=== PATIENT | male | born 1950 | race Caucasian/White ===

== ENCOUNTER 2019-04-30 11:51 | Inpatient (IN) ==
[2019-04-30 13:24] LABS: Alanine Aminotransferase 15 Units/L (7-52); Albumin 3.6 g/dL (3.5-5.7); Alkaline Phosphatase 76 Units/L (34-104); Aspartate Amino Transferase 17 Units/L (13-39); BUN/Creatinine Ratio 16 (6-26); Bilirubin,Total 0.9 mg/dL (0.3-1.0); Blood Urea Nitrogen 14 mg/dL (8-23); Carbon Dioxide 30 mEq/L (23-29); Chloride 103 mEq/L (98-107); Globulin 3.7 g/dL (2.4-3.5); Glucose 103 mg/dL (70-105); Osmolality,Calculated 291 (280-300); Potassium 3.8 mEq/L (3.5-5.1); Sodium 140 mEq/L (136-145); Total Protein 7.3 g/dL (6.4-8.9); Troponin I < 0.03 ng/mL (< 0.04); eGFR For African Americans > 60 (> 60); eGFR For Non-African Americans > 60 (> 60)
[2019-04-30] MEDS ORDERED: Furosemide 40 MG/4 ML VIAL IVP ONE (13:57)
[2019-04-30 14:16] LABS: Basophils % 0.5 %; Eosinophils # 0.3 K/mcL (0.0-0.6); Eosinophils % 5.7 %; Hematocrit 40.7 % (37.5-50.1); Hemoglobin 13.5 g/dL (12.9-16.9); Immature Granulocytes % 0.2 % (0-4); Lymphocytes # 1.6 K/mcL (0.6-4.6); Lymphocytes % 28.4 %; Mean Corpuscular HGB Conc 33.2 g/dL (31.6-35.5); Mean Corpuscular Hemoglobin 33.9 pg (28.0-33.3); Mean Corpuscular Volume 102.3 fL (83.0-100.0); Mean Platelet Volume 9.9 fL (9.4-12.4); Monocytes # 0.5 K/mcL (0.0-1.3); Monocytes % 8.3 %; Neutrophils # 3.2 K/mcL (1.6-8.9); Platelet Count 184 K/mcL (140-400); Red Blood Count 3.98 M/mcL (4.19-5.50); Red Cell Distribution Width 12.7 % (11.5-14.5); Segmented Neutrophils % 56.9 %; White Blood Count 5.6 K/mcL (4.3-11.1)
[2019-04-30 14:56] LABS: Bilirubin,Urine Negative (Negative); Blood,Urine Negative (Negative); Clarity,Urine Clear (Clear); Color,Urine Yellow (Yellow); Glucose,Urine (UA) Normal (Normal); Ketones,Urine Negative (Negative); Leukocyte Esterase,Urine Negative (Negative); Nitrite,Urine Negative (Negative); Protein,Urine Negative (Neg-Trace); Specific Gravity,Urine 1.013 (1.010-1.025); Urobilinogen,Urine Normal (Normal)
[2019-04-30] MEDS ORDERED: traMADol 50 MG TABLET PO PRN (15:54)
[2019-04-30] MEDS ORDERED: Naloxone 0.4 MG/ML INJ IVP PRN (15:54)
[2019-04-30] MEDS ORDERED: *HR* Promethazine 25 MG/ML VIAL IVP PRN (15:54)
[2019-04-30] MEDS ORDERED: Ondansetron 4 MG/2 ML VIAL IVP PRN (15:54)
[2019-04-30] MEDS ORDERED: Acetaminophen 325 MG TABLET PO PRN (15:54)
[2019-04-30] MEDS ORDERED: Mag Hydrox/Al Hydrox/Simeth 30 ML UDC PO PRN (15:54)
[2019-04-30] MEDS ORDERED: Isovue-370 500 ML BOTTLE IVP ONE ×2 (15:59→16:17)
[2019-04-30] MEDS: Furosemide 20 MG TABLET PO SCH (17:44)
[2019-04-30] MEDS: *HR* Rivaroxaban 10 MG TABLET PO SCH (17:44)
[2019-05-01 02:36] LABS: Basophils % 0.6 %; Eosinophils # 0.3 K/mcL (0.0-0.6); Eosinophils % 4.3 %; Hematocrit 40.8 % (37.5-50.1); Hemoglobin 13.7 g/dL (12.9-16.9); Immature Granulocytes % 0.4 % (0-4); Lymphocytes # 1.6 K/mcL (0.6-4.6); Mean Corpuscular HGB Conc 33.6 g/dL (31.6-35.5); Mean Corpuscular Hemoglobin 33.4 pg (28.0-33.3); Mean Corpuscular Volume 99.5 fL (83.0-100.0); Mean Platelet Volume 9.7 fL (9.4-12.4); Monocytes # 0.7 K/mcL (0.0-1.3); Monocytes % 9.9 %; Neutrophils # 4.1 K/mcL (1.6-8.9); Platelet Count 209 K/mcL (140-400); Red Cell Distribution Width 12.7 % (11.5-14.5); Segmented Neutrophils % 60.8 %; White Blood Count 6.8 K/mcL (4.3-11.1)
[2019-05-01 03:21] LABS: Alanine Aminotransferase 16 Units/L (7-52); Albumin 3.5 g/dL (3.5-5.7); Albumin/Globulin Ratio 0.9 (1.1-2.2); Alkaline Phosphatase 69 Units/L (34-104); Aspartate Amino Transferase 21 Units/L (13-39); BUN/Creatinine Ratio 17 (6-26); Bilirubin,Total 1.1 mg/dL (0.3-1.0); Blood Urea Nitrogen 16 mg/dL (8-23); Calcium 9.1 mg/dL (8.6-10.3); Carbon Dioxide 30 mEq/L (23-29); Chloride 98 mEq/L (98-107); Chol/HDL Ratio 3.9 (0-4.9); Cholesterol 142 mg/dL (< 200); Globulin 3.9 g/dL (2.4-3.5); Glucose 132 mg/dL (70-105); HDL Cholesterol 36 mg/dL (40-59); LDL Cholesterol,Calculated 90 mg/dL (0-99); Magnesium 1.8 mg/dL (1.6-2.6); Osmolality,Calculated 285 (280-300); Potassium 3.6 mEq/L (3.5-5.1); Sodium 136 mEq/L (136-145); Total Protein 7.4 g/dL (6.4-8.9); Triglycerides 81 mg/dL (< 150); eGFR For African Americans > 60 (> 60); eGFR For Non-African Americans > 60 (> 60)
[2019-05-01] MEDS: Furosemide 20 MG TABLET PO SCH ×2 (05:08→17:04)
[2019-05-01] MEDS ORDERED: RIVAROXABAN 10 MG PO SCH (09:00)
[2019-05-01] MEDS: Aspirin Enteric Coated 81 MG Tablet PO SCH (09:34)
[2019-05-01] MEDS: Metoprolol 100 MG TABLET PO SCH (09:35)
[2019-05-01] MEDS: *HR* Rivaroxaban 10 MG TABLET PO SCH (17:04)
[2019-05-02] MEDS: Furosemide 20 MG TABLET PO SCH ×2 (05:01→17:33)
[2019-05-02 05:37] LABS: BUN/Creatinine Ratio 22 (6-26); Blood Urea Nitrogen 20 mg/dL (8-23); Carbon Dioxide 28 mEq/L (23-29); Chloride 100 mEq/L (98-107); Glucose 113 mg/dL (70-105); Osmolality,Calculated 285 (280-300); Potassium 3.6 mEq/L (3.5-5.1); Sodium 136 mEq/L (136-145); eGFR For African Americans > 60 (> 60); eGFR For Non-African Americans > 60 (> 60)
[2019-05-02] MEDS ORDERED: Regadenoson 0.4 MG/5 ML SYRINGE IVP ONE ×2 (07:27→07:41)
[2019-05-02] MEDS: Metoprolol 100 MG TABLET PO SCH (09:09)
[2019-05-02] MEDS: Aspirin Enteric Coated 81 MG Tablet PO SCH (09:09)
[2019-05-02] MEDS: Doxycycline 100 MG in 0.9 % Sodium Chloride Mini Bag 100 ML IVPB SCH (17:33)
[2019-05-02] MEDS: MethylPREDNISolone 40 MG/ML VIAL IVP SCH (23:23)
[2019-05-03 05:17] LABS: Hematocrit 42.7 % (37.5-50.1); Hemoglobin 14.8 g/dL (12.9-16.9); Mean Corpuscular HGB Conc 34.7 g/dL (31.6-35.5); Mean Corpuscular Hemoglobin 34.6 pg (28.0-33.3); Mean Corpuscular Volume 99.8 fL (83.0-100.0); Mean Platelet Volume 9.6 fL (9.4-12.4); Platelet Count 222 K/mcL (140-400); Red Blood Count 4.28 M/mcL (4.19-5.50); Red Cell Distribution Width 12.6 % (11.5-14.5); White Blood Count 5.8 K/mcL (4.3-11.1)
[2019-05-03 05:40] LABS: BUN/Creatinine Ratio 22 (6-26); Blood Urea Nitrogen 19 mg/dL (8-23); Calcium 9.3 mg/dL (8.6-10.3); Carbon Dioxide 26 mEq/L (23-29); Chloride 101 mEq/L (98-107); Glucose 179 mg/dL (70-105); Osmolality,Calculated 287 (280-300); Potassium 4.2 mEq/L (3.5-5.1); Sodium 135 mEq/L (136-145); eGFR For African Americans > 60 (> 60); eGFR For Non-African Americans > 60 (> 60)
[2019-05-03] MEDS: Doxycycline 100 MG in 0.9 % Sodium Chloride Mini Bag 100 ML IVPB SCH (05:40)
[2019-05-03] MEDS: Furosemide 20 MG TABLET PO SCH (05:40)
[2019-05-03] MEDS: Aspirin Enteric Coated 81 MG Tablet PO SCH (08:52)
[2019-05-03] MEDS: Metoprolol 100 MG TABLET PO SCH (08:52)
[2019-05-03] MEDS: MethylPREDNISolone 40 MG/ML VIAL IVP SCH ×2 (08:52→16:43)
[2019-05-03] MEDS ORDERED: Heparin 1,000 UNITS/500 mL 500 ML ONE (10:54)
[2019-05-03] MEDS ORDERED: 0.9 % Sodium Chloride 1,000 ML ONE (10:54)
[2019-05-03] MEDS ORDERED: Iopamidol 125 ML INFUS..BTL ONE (10:54)
[2019-05-03] MEDS ORDERED: Nitroglycerin 1,000 MCG/10 ML VIAL IV ONE (10:54)
[2019-05-03] MEDS ORDERED: *HR* Heparin 10,000 UNIT/10 ML VIAL ONE (10:54)
[2019-05-03] MEDS ORDERED: *HR* Midazolam HCl 2 MG/2 ML VIAL ONE (11:03)
[2019-05-03] MEDS ORDERED: *HR* FentaNYL (PF) 100 MCG/2 ML VIAL ONE (11:04)
[2019-05-03 14:09] VITALS: BP 129/82
[2019-05-03] MEDS ORDERED: *HR* Rivaroxaban 10 MG TABLET PO SCH (17:00)
[2019-05-04] MEDS ORDERED: Isosorbide MONOnitrate (24 HR) 30 MG TAB.ER.24H PO SCH (09:00)
[2019-05-04] MEDS ORDERED: Metoprolol XL (24 HR) Succ 50 MG TAB.ER.24H PO SCH (09:00)
[2019-05-05 10:11] LABS: ANA IgG by ELISA NONE DETECTED (None Detected); Serine Protease-3 Antibody 1 AU/mL (0-19)
[2019-05-08 09:33] LABS: T. vulgaris 1 Ab Precipitin NONE DETECTED (None Detected)
== END 2019-05-03 17:33 | disposition home or self-care (01) | DRG 196 ==
LOC: EMEROOARM 11:51 → 2NNU 11:51 → 3BNU 16:11
PROVIDERS: ADMIT Internal Medicine; ATTEND Internal Medicine

== ENCOUNTER 2019-07-14 11:01 | Inpatient (IN) ==
[2019-07-14] MEDS ORDERED: Ondansetron 4 MG/2 ML VIAL IVP ONE (11:25)
[2019-07-14] MEDS ORDERED: *HR* Promethazine 25 MG/ML VIAL IVP PRN (11:25)
[2019-07-14] MEDS ORDERED: *HR* Labetalol 20 MG/4 ML SYRINGE IVP PRN (11:25)
[2019-07-14] MEDS ORDERED: *HR* OxyCODONE Immed Rel 5 MG TABLET PO PRN (11:25)
[2019-07-14] MEDS ORDERED: Gabapentin 300 MG CAPSULE PO ONE (11:25)
[2019-07-14] MEDS ORDERED: *HR* HYDROmorphone 2 MG/ML SYRINGE IVP PRN (11:25)
[2019-07-14] MEDS ORDERED: Hydrocortisone Sodium Succ 100 MG/2 ML VIAL IVP ONE (11:42)
[2019-07-14] MEDS ORDERED: CeFAZolin Syr 3,000MG/30 ML 3,000 MG/30 ML SYRINGE IVPB ONE (11:53)
[2019-07-14] MEDS ORDERED: Albuterol 2.5 MG/3 ML NEBULIZER IH PRN (11:58)
[2019-07-14] MEDS ORDERED: Ringers Solution, Lactated 1,000 ML IVC SCH (12:00)
[2019-07-14] MEDS ORDERED: *HR* FentaNYL (PF) 100 MCG/2 ML VIAL ONE (12:30)
[2019-07-14] MEDS ORDERED: Lidocaine -MPF 2% 2 ML VIAL ONE (12:31)
[2019-07-14] MEDS ORDERED: *HR* Propofol 200 MG/20 ML VIAL IVP ONE (12:31)
[2019-07-14] MEDS ORDERED: *HR* Rocuronium Bromide 50 MG/5 ML VIAL ONE (12:32)
[2019-07-14] MEDS ORDERED: *HR* Midazolam HCl 2 MG/2 ML VIAL ONE (12:34)
[2019-07-14] MEDS ORDERED: Ondansetron 4 MG/2 ML VIAL ONE (15:18)
[2019-07-14] MEDS ORDERED: Dexamethasone 4 MG/ML VIAL ONE (15:18)
[2019-07-14] MEDS ORDERED: *HR* HYDROcodone/Acet 5/325 mg TABLET PO PRN (16:38)
[2019-07-14] MEDS ORDERED: Ondansetron 4 MG/2 ML VIAL IVP PRN (16:38)
[2019-07-14] MEDS: Ketorolac 15 MG/ML VIAL IVP SCH (17:30)
[2019-07-14] MEDS: 0.9 % Sodium Chloride 1,000 ML IVC SCH (17:30)
[2019-07-14] MEDS: Ipratropium/Albuterol Neb 3 ML IH SCH ×2 (18:22→20:28)
[2019-07-14] MEDS: Sennosides/Docusate Sodium TABLET PO SCH (20:01)
[2019-07-14] MEDS: Famotidine 20 MG TABLET PO SCH (20:01)
[2019-07-14] MEDS: Gabapentin 300 MG CAPSULE PO SCH (20:02)
[2019-07-15] MEDS: Ipratropium/Albuterol Neb 3 ML IH SCH ×4 (00:19→11:12)
[2019-07-15] MEDS: *HR* Heparin 5,000 UNIT/ML VIAL SQ SCH ×2 (00:44→06:04)
[2019-07-15] MEDS: Ketorolac 15 MG/ML VIAL IVP SCH ×2 (00:44→06:04)
[2019-07-15 04:36] LABS: Hematocrit 37.2 % (37.5-50.1); Hemoglobin 12.2 g/dL (12.9-16.9); Mean Corpuscular HGB Conc 32.8 g/dL (31.6-35.5); Mean Corpuscular Volume 103.6 fL (83.0-100.0); Mean Platelet Volume 9.9 fL (9.4-12.4); Platelet Count 158 K/mcL (140-400); Red Blood Count 3.59 M/mcL (4.19-5.50); Red Cell Distribution Width 13.4 % (11.5-14.5); White Blood Count 7.8 K/mcL (4.3-11.1)
[2019-07-15 04:58] LABS: % Iron Saturation 11 % (20-55); BUN/Creatinine Ratio 22 (6-26); Blood Urea Nitrogen 20 mg/dL (8-23); Carbon Dioxide 27 mEq/L (23-29); Chloride 103 mEq/L (98-107); Glucose 178 mg/dL (70-105); Iron 32 mcg/dL (65-175); Magnesium 1.8 mg/dL (1.6-2.6); Osmolality,Calculated 291 (280-300); Potassium 4.2 mEq/L (3.5-5.1); Sodium 137 mEq/L (136-145); Transferrin 203 mg/dL (203-362); eGFR For African Americans > 60 (> 60); eGFR For Non-African Americans > 60 (> 60)
[2019-07-15] MEDS: 0.9 % Sodium Chloride 1,000 ML IVC SCH (06:13)
[2019-07-15] MEDS ORDERED: predniSONE 10 MG TABLET PO SCH (09:00)
[2019-07-15] MEDS ORDERED: Furosemide 20 MG TABLET PO SCH (09:00)
[2019-07-15] MEDS ORDERED: Metoprolol 100 MG TABLET PO SCH (09:00)
[2019-07-15] MEDS ORDERED: Aspirin Enteric Coated 81 MG Tablet PO SCH (09:00)
[2019-07-15] MEDS ORDERED: Fluconazole 100 MG TABLET PO ONE (09:15)
[2019-07-15] MEDS: Sennosides/Docusate Sodium TABLET PO SCH (09:16)
[2019-07-15] MEDS: Famotidine 20 MG TABLET PO SCH (09:16)
[2019-07-15] MEDS: Gabapentin 300 MG CAPSULE PO SCH (09:16)
[2019-07-15] MEDS ORDERED: Nystatin POWDER 30 GM BOTTLE TP SCH (09:30)
[2019-07-15] MEDS ORDERED: FLU Vac QV 19-20 (6Month+)/PF 0.5 ML SYRINGE IM ONE (10:59)
[2019-07-15 11:08] VITALS: BP 107/70
== END 2019-07-15 12:08 | disposition home or self-care (01) | DRG 164 ==
LOC: SAMDAY 11:01 → 2NNU 16:40
PROVIDERS: ADMIT Thoracic Surgery (Cardiothoracic Vascular Surgery); ATTEND Thoracic Surgery (Cardiothoracic Vascular Surgery)